=== PATIENT | male | born 1985 | race Caucasian/White ===

== ENCOUNTER 2024-11-22 07:47 | Emergency (ER) | payer MEDICAID, SELFPAY ==
[2024-11-22 07:55] VITALS: BP 120/67; PULSE 78; RESP 16; TEMP 37.3; O2SAT 99; BMI 21.9
[2024-11-22 08:46] LABS: Anion Gap 12 (12-20); Blood Urea Nitrogen 11 mg/dL (9-16); Calcium 9.4 mg/dL (8.4-10.2); Carbon Dioxide 28 mmol/L (22-29); Chloride 99 mmol/L (96-108); Creatinine Clr Calc Pharmacy 142.3; Estimated Glomerular Filt Rate > 60; Glucose Random 85 mg/dL (60-115); Potassium 3.7 mmol/L (3.3-5.1); Sodium 135 mmol/L (135-145)
[2024-11-22] MEDS: Lidocaine 4 % Cream KIT 1 APPL TOPICAL (08:56)
[2024-11-22] MEDS: Lidocaine HCl 1 % MPF 5 ML VIAL SUBCUT (09:02)
--- NOTE | 2024-11-22 09:03 | ED_ITS ---
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 No n/v and no fevers. He has not had MRSA before. He states it hurts and he thinks he has cellulitis MD complaint: rash and abscess/boil Onset (ago): week(s) (1) Tetanus up to date: yes Location: RUE Severity: moderate Quality: aching Pain Consistency: intermittent Relieving factors: immobilization Exacerbating factors: palpation and movement Context: IVDA Associated symptoms: denies other symptoms Treatments prior to arrival: attempted to drain pus at home Related Data Allergies Allergy/AdvReac Type Severity Reaction Status Date / Time No Known Allergies Allergy Verified 11/22/24 07:56 Review of Systems 2 Review of Systems: Constitutional : No Fever, No Chills ENT/Mouth : No sore throat, No Rhinorrhea Eyes: No Eye Pain, No Swelling, No Redness Cardiovascular : No Chest Pain, No SOB Respiratory : No Cough, No Sputum Gastrointestinal : No Nausea, No Vomiting, No Diarrhea, No abdominal Pain Genitourinary : No Dysuria, No Hematuria Musculoskeletal : No joint pain, No Myalgias, No Joint Swelling Skin : No Skin Lesions, positive skin rash Neuro : No Weakness, No Numbness, No Headache Psych : No Anxiety, No Depression All other systems reviewed and are negative [facility] Past Medical History Attestation statement: The following information was validated with the patient. Source: old records reviewed Medical History Opiate abuse, continuous Social History Social History (Updated 11/22/24 @ 09:05 by Meghann Read DO) Patient Tobacco Use Status: Tobacco use Unknown Advance Directives: No Advance Directives Information Provided: Yes Physical Exam 2 Vital Signs: Vital Signs: Last Vital Signs Temp 99.1 F 11/22/24 07:55 Pulse 78 11/22/24 07:55 Resp 16 11/22/24 07:55 BP 120/67 11/22/24 07:55 Pulse Ox 99 11/22/24 07:55 O2 Del Method Room Air 11/22/24 07:55 BMI result Body Mass Index 21.9 Appearance: Alert. Oriented X3. No acute distress. Eyes: Pupils equal, round and reactive to light. ENT: Pharynx normal. Neck: Normal inspection. Neck supple. CVS: Normal heart rate and rhythm. Pulses normal. Respiratory: No respiratory distress. Breath sounds normal. Abdomen: Soft and nontender. Skin: Skin warm and dry. Normal skin color. Normal skin turgor. Extremities: No lower extremity edema. R AC area 3cm fluctuant boil with overlying cellulitis there is no joint effusion and he is distal NV intact, the redness goes to very prox anterior forearm Neuro: Oriented X 3. No motor deficit. No sensory deficit. CN2-12 intact Medications Administered Discontinued Medications Generic Name Dose Route Start Last Admin Trade Name Freq PRN Reason Stop Dose Admin Lidocaine HCl 1 appl 11/22/24 08:46 11/22/24 08:56 Lidocaine 4 % Cream Kit TOPICAL 11/22/24 08:47 1 appl ONCE ONE Administration Protocol Lidocaine HCl 5 ml 11/22/24 08:46 11/22/24 09:02 Lidocaine Hcl 1 % Mpf 5 Ml Vial SUBCUT 11/22/24 08:47 5 ml ONCE ONE Administration Medical Decision Making Medical Decision Making [facility] Narrative: 39 yo male with PMH of IVDA here with c/o R AC abscess on US there is fluid to I+D and I do not see local DVT. At this time labs and I+D with oral antibiotics he has no signs of septic joint it is above the joint line and he is distal NV intact Differential Diagnosis Differential Diagnoses: The differential diagnosis associated with the presentation includes cellulitis, abscess no signs of crepitus or septic joint Admission/Observation Consideration of admission/observation: Escalation of care including admission/observation considered can trial oral outpatient abx patient did not want to wait even though he was in the bathroom for a long time and I came back with the set up done RN called me back to let me know he was in the room he became angry and walked out that he was made to wait this long Lab Data [facility] Lab Attestation statement: I reviewed the patient's lab results. 11/22/24 08:17 Labs: Lab Results 04/14/25 Range/Units 08:17 Sodium 135 (135-145) mmol/L Potassium 3.7 (3.3-5.1) mmol/L Chloride 99 (96-108) mmol/L Carbon Dioxide 28 (22-29) mmol/L Anion Gap 12 (12-20) BUN 11 (9-16) mg/dL Creatinine 0.67 (0.5-1.4) mg/dL Estim Creat Clear Calc 142.3 Estimated GFR > 60 Random Glucose 85 (60-115) mg/dL Calcium 9.4 (8.4-10.2) mg/dL Independent Interpretation I performed an independent interpretation of an: Ultrasound (abscess seen) Prescription Management I considered prescription management with: Antibiotic Procedures Procedure Narrative Procedure Narrative: bedside limited US there is a collection of fluid to aspirate for abscess I did review veins in area as well as cephalic and basilic they are all compressible no signs of DVT Discharge Plan Discharge Clinical Impression: Abscess of skin or subcutaneous tissue Qualifiers: Site of cutaneous abscess: extremity Site of cutaneous abscess of extremity: u pper extremity Laterality: right Qualified Code(s): L02.413 - Cutaneous abscess of right upper limb Patient Disposition: Left Against Medical Advice Instructions: Cellulitis (ED), Against Medical Advice (ED) Print Language: [place]ian
[2024-11-22 10:03] VITALS: BP 0/0; PULSE 78; RESP 16; TEMP 37.3; O2SAT 99
== END 2024-11-22 10:04 | disposition left against medical advice (07) ==
PROVIDERS: Emergency Provider Emergency Medicine
DX: L02.413 Cutaneous abscess of right upper limb (principal)
CPT/HCPCS: 10060; 36415; 80048; 99282; 99284; J2003